=== PATIENT | male | born 1965 | race Caucasian/White ===

== ENCOUNTER → 2017-09-30 | Outpatient (CLI) | payer BC ==
[~2017-09-30] MED LIST: LOSA50 PO
== END | disposition home or self-care (01) ==
LOC: LAB SHORT 10:34 → PLD 10:34
DX: D22.5 Melanocytic nevi of trunk (principal)
CPT/HCPCS: 88305

== ENCOUNTER 2017-10-06 06:17 | Day surgery (SDC) | payer BC ==
[~2017-10-06] VITALS: Ht 185.4 cm; Wt 87.0 kg
== END 2017-10-06 09:50 | disposition home or self-care (01) ==
LOC: ORSCSDS 06:17
PROVIDERS: Orthopaedic Surgery
PROC: 01N40ZZ Release Ulnar Nerve, Open Approach (ICD-10-PCS; principal; 2017-10-06 07:30)
PROC: 0LN30ZZ Release Right Upper Arm Tendon, Open Approach (ICD-10-PCS; principal; 2017-10-06 07:30)
DX: M77.11 Lateral epicondylitis, right elbow (principal); G56.21 Lesion of ulnar nerve, right upper limb
CPT/HCPCS: J0171; J2250; J3010; J7120

== ENCOUNTER → 2017-10-13 | Outpatient (CLI) | payer BC | LOC: PLD 08:19 → LAB SHORT 08:19 | DX: D22.5 Melanocytic nevi of trunk (principal) | CPT/HCPCS: 88305 ==

== ENCOUNTER 2019-02-02 07:51 | Day surgery (SDC) | payer BC ==
[~2019-02-02] VITALS: Ht 185.4 cm; Wt 83.6 kg
== END 2019-02-02 09:50 | disposition home or self-care (01) ==
LOC: ORSCSDS 07:51
PROVIDERS: Internal Medicine Gastroenterology
PROC: 0DBN8ZX Excision of Sigmoid Colon, Via Natural or Artificial Opening Endoscopic, Diagnostic (ICD-10-PCS; principal; 2019-02-02 09:00)
DX: Z12.11 Encounter for screening for malignant neoplasm of colon (principal); Z86.010 Personal history of colon polyps; Z80.0 Family history of malignant neoplasm of digestive organs; D12.5 Benign neoplasm of sigmoid colon; I10 Essential (primary) hypertension; K21.0 Gastro-esophageal reflux disease with esophagitis; Z79.899 Other long term (current) drug therapy
CPT/HCPCS: 88305; J0461; J2405; J2704; J7120

== ENCOUNTER 2024-02-12 10:58 | Day surgery (SDC) | payer BC ==
[~2024-02-12] VITALS: Ht 185.4 cm; Wt 83.6 kg
[2024-02-12] VITALS (15 sets, daily range): BP systolic 104–138; BP diastolic 66–102
[~2024-02-12 10:58] MED LIST changes: +FAMO40 PO; +Lactated Ringer's 1,000 ML IV SCH
[2024-02-12] MEDS ORDERED: propofoL 40 ML IV ONE (11:16)
--- NOTE | 2024-02-12 12:21 | NUR ---
02/12/24 1221 Maria R Herrera CONFIRMED AND REVIEWED H&P, MEDCICATIONS, ALLERGIES, MEDICAL HISTORY, RESPIRATORY HISTORY, VITAL SIGNS, 3-LEAD EKG, CONSENTS, AND PHYSICIAN ORDERS. PATIENT CONFIRMS NPO STATUS AND AGREES WITH SCHEDULED PROCEDURE. MONITOR INTACT WITH CONTINUOUS PULSE OXIMETRY, CAPNOGRAPHY, 3-LEAD EKG, INTERMITTENT BP. SUPPLEMENTAL O2 TO BE TITRATED THROUGHOUT PROCEDURE TO MAINTAIN O2 SATURATION ABOVE 90%. PATIENT DETERMINED TO BE ASA APPROPRIATE FOR PROPOFOL SEDATION PRIOR TO START OF PROCEDURE BY DR. CHAVEZ.
--- NOTE | 2024-02-12 12:53 | NUR ---
Patient up to Ambulate independently. Gait steady. Discharge instructions reviewed with patient. Patient verbalizes understanding. Copy given to patient to take home. Patient States Post-Procedure ride home has been arranged. Discharged via wheelchair to private car for ride home. ALL BELONGINGS RETURNED TO PATIENT.
== END 2024-02-12 12:54 | disposition home or self-care (01) ==
LOC: ORSCMMR 10:58 → ORSCSDS 12:00 → ORSCMMR 12:00 → ORSCSDS 13:00 → ORSCMMR 02-13 03:14
DX: Z12.11 Encounter for screening for malignant neoplasm of colon (principal); Z86.010 Personal history of colon polyps; Z83.719 Family history of colon polyps, unspecified; Z80.0 Family history of malignant neoplasm of digestive organs; D12.0 Benign neoplasm of cecum; K63.5 Polyp of colon; Z79.899 Other long term (current) drug therapy
CPT/HCPCS: 88305; J2704; J7120

== ENCOUNTER 2025-05-01 08:01 | Day surgery (SDC) | payer BC ==
[~2025-05-01] VITALS: Ht 185.4 cm; Wt 88.5 kg
[~2025-05-01 08:01] MED LIST changes: -Lactated Ringer's 1,000 ML IV SCH; +Lidocaine HCl 2% 10 ML SDA ONE
[2025-05-01] MEDS ORDERED: Tranexamic Acid 100 ML IV ONE (08:16)
[2025-05-01] MEDS ORDERED: Clindamycin 900mg in D5W 50ML 0 ML IV ONE (08:29)
[2025-05-01] MEDS ORDERED: CeFAZolin Sodium 2,000 MG VIAL ONE (08:32)
--- NOTE | 2025-05-01 09:05 | NUR ---
05/01/25 0905 TAPAN DODD PRP DRAWN [id number]
[2025-05-01] MEDS ORDERED: FentaNYL Citrate 50 MCG/ML 2 ML Injection ONE (09:18)
[2025-05-01] MEDS ORDERED: Dexamethasone Sod Phos 10 MG/ML 1ML VIAL ONE (09:59)
[2025-05-01] MEDS ORDERED: Ondansetron HCl 2 MG / ML 2ML Vial ONE (09:59)
[2025-05-01] MEDS ORDERED: HYDROcodone 5-APAP 325 TAB ONE (11:01)
--- NOTE | 2025-05-01 11:49 | NUR ---
05/01/25 [id number] Danette Majano 1140 PT D/C HOME IN STABLE CONDITION PAIN DECREASED 0/10 FROM 2/10 OK TO DISCHARGE HOME, ACCOMPANIED BY MINISTER, ALL VALUABLE RETURNED. PT VERBALIZED UNDERSTANDING OF ALL AFTER CARE INSTRUCTIONS.
[2025-05-01 12:13] VITALS: BP 118/78
--- NOTE | 2025-05-01 12:16 | NUR ---
05/01/25 [email or web address] Danette Majano RECEIVED PT TO PACU IN STABLE CONDITION, ANES AT BEDSIDE, RECEIVED REPORT FROM LOG MARKER.
== END 2025-05-01 11:40 | disposition home or self-care (01) ==
LOC: ORSCSDS 08:01
PROVIDERS: Orthopaedic Surgery
PROC: 01N40ZZ Release Ulnar Nerve, Open Approach (ICD-10-PCS; principal; 2025-05-01 09:30)
PROC: 30233L0 Transfusion of Autologous Fresh Plasma into Peripheral Vein, Percutaneous Approach (ICD-10-PCS; principal; 2025-05-01 09:30)
DX: G56.22 Lesion of ulnar nerve, left upper limb (principal); I10 Essential (primary) hypertension; E78.00 Pure hypercholesterolemia, unspecified; G47.33 Obstructive sleep apnea (adult) (pediatric)
CPT/HCPCS: 64718; 0232T; A9270; J0690; J1100; J2003; J2405; J2704; J3010; J7120